=== PATIENT | male | born 1950 | race Caucasian/White ===

== ENCOUNTER 2018-09-13 03:19 | Emergency (ER) | payer OTHER ==
[~2018-09-13] VITALS: Ht 188 cm; Wt 79.4 kg
[2018-09-13] MEDS ORDERED: KEFLEX500 M1 PO (04:43)
[2018-09-13 07:54] VITALS: BP 106/54
== END 2018-09-13 08:13 ==
LOC: ER 03:19
DX: S01.81XA Laceration without foreign body of other part of head, initial encounter (principal); S63.501A Unspecified sprain of right wrist, initial encounter; W18.30XA Fall on same level, unspecified, initial encounter; Y93.89 Activity, other specified; Y92.89 Other specified places as the place of occurrence of the external cause; Y99.8 Other external cause status